=== PATIENT | female | born 1990 | race Caucasian/White ===

== ENCOUNTER → 2018-11-30 10:40 | Observation (INO) ==
[2018-11-30 09:25] LABS: Bilirubin,Urine Negative (Negative); Blood,Urine Large (Negative); Clarity,Urine Cloudy (Clear); Color,Urine Dark Yellow (Yellow); Glucose,Urine (UA) Normal (Normal); Ketones,Urine Negative (Negative); Leukocyte Esterase,Urine Large (Negative); Nitrite,Urine Negative (Negative); Protein,Urine Trace mg/dL (Neg-Trace); Specific Gravity,Urine 1.021 (1.010-1.025); Urobilinogen,Urine Normal (Normal)
[2018-11-30 09:28] LABS: Bacteria,Urine Few per hpf (None-Few); Hyaline Casts,Urine Few per lpf (None-Few); Squamous Epithelial Cell,Urine Many per lpf (None-Few); WBC,Urine 30-50 per hpf (0-3)
--- NOTE | 2018-11-30 10:13 | Event Note ---
Date of Encounter: 11/30/18 Time of Encounter: 10:11 Patient is admitted today after having intercourse having large amount of bleeding and discharge. I was asked to perform ultrasound by mixer pigment. Ultrasound shows infant in transverse presentation. Infant very active. Arms and legs moving. Patient was able to visualize this. Amniotic fluid subjectively is normal. There is a large amount seen all around the . Placenta is posterior with no signs of placental separation. Placenta is very low-lying and at cervix. Most likely source of bleeding due to trauma from recent intercourse causing some mild separation which cannot be seen on ultrasound. Patient understands this. She is to have pelvic rest and do no heavy lifting. She is to follow back up in the office for repeat scan. Patient has been monitored. No contractions have picked up.
[2018-11-30 10:24] LABS: Amphetamine Screen,Urine Negative ng/mL (Cutoff=1000); Barbiturate Screen,Urine Negative ng/mL (Cutoff=200); Benzodiazepines Screen,Urine Negative ng/mL (Cutoff=200); Cannabinoid Screen,Urine Positive ng/mL (Cutoff = 50); Cocaine Screen,Urine Negative ng/mL (Cutoff= 300); Opiate Screen,Urine Negative ng/mL (Cutoff=300); Phencyclidine Screen,Urine Negative ng/mL (Cutoff=25)
--- NOTE | 2018-11-30 10:33 | OB/GYN Progress Note ---
Date of Encounter: 11/30/18 Time of Encounter: 10:30 - Assessment and Plan (1) 21 weeks gestation of Current Visit: Yes Status: Acute Per Ultrasound with Dr Gastelum - normal amount of fluid with low-lying placenta Metronidazole for BV Bleeding has slowed Discharge home on pelvic rest and with PTL/Bleeding precautions Follow up in office with routine care and PRN POC per consult with Dr Diaz (2) Vaginal bleeding before 22 weeks gestation Current Visit: Yes Status: Acute (3) Bacterial vaginosis in Current Visit: Yes Status: Acute Subjective - Subjective Principal diagnosis: Vaginal bleeding Interval history: Ms Sampson is a at 21 weeks and 6 days that presents to [facility] with c/o vaginal bleeding that began this morning after having a bowel movement. She states that she has had diarrhea multiple times throughout this and has not been around anyone that has been ill with a GI illness. She states positive movement. She has not had any previous episodes of vaginal delivery with this or previous pregnancies. She has a Rh positive blood type. She admits to intercourse last night. She denies cramping/contractions/leaking of fluid. She is seen by Dr Lawson for her care. Antepartum ROS: vaginal bleeding, movement normal, no loss of fluid, no contractions Objective - Vital Signs Vital Signs: Intake and Output 11/29/18 11/30/18 11/30/18 23:59 07:59 15:59 Other: Weight 108.3 kg Patient Weight 11/30/18 23:59 Weight 108.3 kg - Exam FHR: auscultation normal FHR comments: FHTs in 140's NO contractions per report, palpation, or toco Auscultation: bilateral: normal Abdomen: Present: normal appearance, soft, gravid Uterus: Present: normal. Absent: firm, tenderness Comments: SSE - odor (fish like), Mild amount of non-clotted blood from cervix (mild red in color). Cervix appears visually closed. - Labs Labs: Abnormal lab results Urine Clarity Cloudy (Clear) A 11/30/18 09:06 Urine Blood Large (Negative) H 11/30/18 09:06 Ur Leukocyte Esterase Large (Negative) H 11/30/18 09:06 Urine Microscopic RBC 3-5 per hpf (0-3) H 11/30/18 09:06 Urine Microscopic WBC 30-50 per hpf (0-3) H 11/30/18 09:06 Ur Squamous Epith Cells Many per lpf (None-Few) H 11/30/18 09:06 Ur Culture Indicated? YES (NO) A 11/30/18 09:06 U Marijuana (THC) Screen Positive ng/mL (Cutoff = 50) H 11/30/18 09:06
== END | disposition home or self-care (01) ==
LOC: 1NENULAB
PROVIDERS: ADMIT Advanced Practice Midwife; ATTEND Advanced Practice Midwife

== ENCOUNTER 2019-01-08 07:25 | Observation (INO) ==
[2019-01-08 08:38] LABS: Bilirubin,Urine Negative (Negative); Blood,Urine Large (Negative); Color,Urine Yellow (Yellow); Glucose,Urine (UA) Normal (Normal); Ketones,Urine Negative (Negative); Leukocyte Esterase,Urine Negative (Negative); Nitrite,Urine Negative (Negative); PH,Urine 6.5 pH Units (5.0-8.0); Protein,Urine Negative (Neg-Trace); Urobilinogen,Urine Normal (Normal)
[2019-01-08 08:40] LABS: Bacteria,Urine None Seen per hpf (None-Few); Hyaline Casts,Urine None Seen per lpf (None-Few); RBC,Urine 0-3 per hpf (0-3); Squamous Epithelial Cell,Urine Many per lpf (None-Few); WBC,Urine 0-3 per hpf (0-3)
[2019-01-08 08:41] LABS: Clarity,Urine Slightly Hazy (Clear)
[2019-01-08 09:02] LABS: Amphetamine Screen,Urine Negative ng/mL (Cutoff=1000); Barbiturate Screen,Urine Negative ng/mL (Cutoff=200); Benzodiazepines Screen,Urine Negative ng/mL (Cutoff=200); Cannabinoid Screen,Urine Negative ng/mL (Cutoff = 50); Cocaine Screen,Urine Negative ng/mL (Cutoff= 300); Opiate Screen,Urine Negative ng/mL (Cutoff=300); Phencyclidine Screen,Urine Negative ng/mL (Cutoff=25)
[2019-01-08 10:29] LABS: Candida DNA Not Detected (Not Detect); Gardnerella DNA Not Detected (Not Detect); Trichomonas DNA Not Detected (Not Detect)
== END 2019-01-08 13:10 | disposition home or self-care (01) ==
LOC: 1NENULAB
PROVIDERS: ADMIT Registered Nurse; ATTEND Registered Nurse

== ENCOUNTER 2019-01-13 04:45 | Observation (INO) ==
[2019-01-13 05:18] LABS: Bilirubin,Urine Negative (Negative); Blood,Urine Large (Negative); Clarity,Urine Cloudy (Clear); Color,Urine Yellow (Yellow); Glucose,Urine (UA) Normal (Normal); Ketones,Urine Negative (Negative); Leukocyte Esterase,Urine Small (Negative); Nitrite,Urine Negative (Negative); Protein,Urine Negative (Neg-Trace); Specific Gravity,Urine 1.015 (1.010-1.025); Urobilinogen,Urine Normal (Normal)
[2019-01-13 05:21] LABS: Bacteria,Urine Few per hpf (None-Few); Hyaline Casts,Urine None Seen per lpf (None-Few); Squamous Epithelial Cell,Urine Many per lpf (None-Few); WBC,Urine 15-30 per hpf (0-3)
[2019-01-13 05:27] LABS: Amphetamine Screen,Urine Negative ng/mL (Cutoff=1000); Barbiturate Screen,Urine Negative ng/mL (Cutoff=200); Benzodiazepines Screen,Urine Negative ng/mL (Cutoff=200); Cannabinoid Screen,Urine Negative ng/mL (Cutoff = 50); Cocaine Screen,Urine Negative ng/mL (Cutoff= 300); Opiate Screen,Urine Negative ng/mL (Cutoff=300); Phencyclidine Screen,Urine Negative ng/mL (Cutoff=25)
== END 2019-01-13 08:30 | disposition home or self-care (01) ==
LOC: 1NENULAB
PROVIDERS: ADMIT Advanced Practice Midwife; ATTEND Advanced Practice Midwife

== ENCOUNTER → 2019-02-16 08:11 | Observation (INO) ==
[2019-02-15 07:34] LABS: Basophils % 0.3 %; Eosinophils # 0.1 K/mcL (0.0-0.6); Hematocrit 36.6 % (35.3-44.9); Hemoglobin 13.1 g/dL (11.5-15.4); Immature Granulocytes % 1.2 % (0-4); Lymphocytes # 3.4 K/mcL (0.6-4.6); Lymphocytes % 22.9 %; Mean Corpuscular HGB Conc 35.8 g/dL (31.6-35.5); Mean Corpuscular Hemoglobin 31.6 pg (28.0-33.3); Mean Corpuscular Volume 88.2 fL (83.0-100.0); Mean Platelet Volume 11.5 fL (9.4-12.4); Monocytes # 1.5 K/mcL (0.0-1.3); Monocytes % 10.4 %; Neutrophils # 9.4 K/mcL (1.6-8.9); Platelet Count 260 K/mcL (140-400); Red Blood Count 4.15 M/mcL (3.82-4.97); Red Cell Distribution Width 13.5 % (11.5-14.5); Segmented Neutrophils % 64.2 %; White Blood Count 14.6 K/mcL (4.3-11.1)
[2019-02-15] MEDS: Betamethasone Acet/SodPhos 30 MG/5 ML VIAL IM SCH (07:37)
[2019-02-15 08:08] LABS: INR 0.9
[2019-02-15 08:10] LABS: Activated Partial Thrombo Time 28.6 Seconds (26.0-36.0)
[2019-02-16] MEDS: Betamethasone Acet/SodPhos 30 MG/5 ML VIAL IM SCH (07:21)
[~2019-02-16 08:11] MED LIST: Acetaminophen 325 MG TABLET PO ONE; Ringers Solution, Lactated 1,000 ML IVC SCH; Ringers Solution, Lactated 1,000 ML ONE
== END | disposition home or self-care (01) ==
LOC: 1NENULAB
PROVIDERS: ADMIT Registered Nurse; ATTEND Registered Nurse

== ENCOUNTER → 2019-02-19 09:53 | Observation (INO) ==
[2019-02-19 09:28] LABS: Bilirubin,Urine Negative (Negative); Blood,Urine Moderate (Negative); Color,Urine Yellow (Yellow); Glucose,Urine (UA) Normal (Normal); Ketones,Urine Negative (Negative); Leukocyte Esterase,Urine Small (Negative); Nitrite,Urine Negative (Negative); PH,Urine 6.5 pH Units (5.0-8.0); Protein,Urine Negative (Neg-Trace); Specific Gravity,Urine 1.011 (1.010-1.025); Urobilinogen,Urine Normal (Normal)
[2019-02-19 09:31] LABS: Bacteria,Urine Few per hpf (None-Few); Hyaline Casts,Urine None Seen per lpf (None-Few); Squamous Epithelial Cell,Urine Many per lpf (None-Few); WBC,Urine 15-30 per hpf (0-3)
[2019-02-19 09:39] LABS: Clarity,Urine Slightly Cloudy (Clear)
[2019-02-19 09:46] LABS: Amphetamine Screen,Urine Negative ng/mL (Cutoff=1000); Barbiturate Screen,Urine Negative ng/mL (Cutoff=200); Benzodiazepines Screen,Urine Negative ng/mL (Cutoff=200); Cannabinoid Screen,Urine Negative ng/mL (Cutoff = 50); Cocaine Screen,Urine Negative ng/mL (Cutoff= 300); Opiate Screen,Urine Negative ng/mL (Cutoff=300); Phencyclidine Screen,Urine Negative ng/mL (Cutoff=25)
== END | disposition home or self-care (01) ==
LOC: 1NENULAB
PROVIDERS: ADMIT Advanced Practice Midwife; ATTEND Advanced Practice Midwife

== ENCOUNTER 2019-03-31 05:17 | Inpatient (IN) ==
[2019-03-31] MEDS ORDERED: Metoclopramide 10 MG/2 ML VIAL IVP PRN ×2 (05:28→11:50)
[2019-03-31] MEDS ORDERED: Famotidine 20 MG/2 ML VIAL IVP PRN (05:28)
[2019-03-31] MEDS ORDERED: Naloxone 0.4 MG/ML INJ IVP PRN (05:28)
[2019-03-31] MEDS ORDERED: Ringers Solution, Lactated 1,000 ML IVC SCH (05:30)
[2019-03-31 06:00] LABS: Basophils % 0.2 %; Eosinophils # 0.2 K/mcL (0.0-0.6); Eosinophils % 1.1 %; Hematocrit 38.1 % (35.3-44.9); Hemoglobin 13.6 g/dL (11.5-15.4); Immature Granulocytes % 0.7 % (0-4); Lymphocytes # 3.2 K/mcL (0.6-4.6); Mean Corpuscular HGB Conc 35.7 g/dL (31.6-35.5); Mean Corpuscular Volume 86.8 fL (83.0-100.0); Mean Platelet Volume 10.7 fL (9.4-12.4); Monocytes # 1.4 K/mcL (0.0-1.3); Monocytes % 10.6 %; Neutrophils # 8.3 K/mcL (1.6-8.9); Platelet Count 310 K/mcL (140-400); Red Blood Count 4.39 M/mcL (3.82-4.97); Red Cell Distribution Width 13.3 % (11.5-14.5); Segmented Neutrophils % 63.4 %; White Blood Count 13.2 K/mcL (4.3-11.1)
[2019-03-31] MEDS ORDERED: Metoclopramide 10 MG/2 ML VIAL ONE (07:15)
[2019-03-31] MEDS ORDERED: EPHEDrine 50 MG/ML VIAL ONE (07:22)
[2019-03-31] MEDS ORDERED: *HR* FentaNYL (PF) 100 MCG/2 ML VIAL ONE (07:22)
[2019-03-31] MEDS ORDERED: *HR* Morphine Sulfate/PF 10 MG/10 ML AMPUL ONE (07:22)
[2019-03-31] MEDS ORDERED: *HR* Phenylephrine 10 MG/ML VIAL ONE (07:23)
[2019-03-31] MEDS ORDERED: Ondansetron 4 MG/2 ML VIAL ONE (07:23)
[2019-03-31] MEDS ORDERED: *HR* Oxytocin 10 UNIT/ML VIAL IM ONE (07:23)
[2019-03-31] MEDS ORDERED: CeFAZolin Syr 3,000MG/30 ML 3,000 MG/30 ML SYRINGE IVPB ONE (07:29)
[2019-03-31] MEDS ORDERED: *HR* OxyCODONE Immed Rel 5 MG TABLET PO PRN (07:52)
[2019-03-31] MEDS ORDERED: Acetaminophen IV 1,000 MG/100 ML INFUS..BTL IVPB ONE (07:52)
[2019-03-31] MEDS ORDERED: Ondansetron 4 MG/2 ML VIAL IVP ONE (07:52)
[2019-03-31] MEDS ORDERED: *HR* HYDROmorphone (PF) 1 MG/ML SYRINGE IVP PRN (07:52)
[2019-03-31 07:54] LABS: Amphetamine Screen,Urine Negative ng/mL (Cutoff=1000); Barbiturate Screen,Urine Negative ng/mL (Cutoff=200)
[2019-03-31 07:55] LABS: Benzodiazepines Screen,Urine Negative ng/mL (Cutoff=300); Cannabinoid Screen,Urine Negative ng/mL (Cutoff = 50); Cocaine Screen,Urine Negative ng/mL (Cutoff= 300); Opiate Screen,Urine Negative ng/mL (Cutoff=300); Phencyclidine Screen,Urine Negative ng/mL (Cutoff=25)
[2019-03-31] MEDS ORDERED: Ringers Solution, Lactated 1,000 ML ONE (07:59)
[2019-03-31] MEDS ORDERED: Oxytocin 20 units/ LR 1000 mL 20 UNIT/1,000 ML BAG IVC ONE (10:07)
[2019-03-31] MEDS ORDERED: Sennosides 8.6 MG TABLET PO PRN (11:50)
[2019-03-31] MEDS ORDERED: Ondansetron 4 MG/2 ML VIAL IVP PRN (11:50)
[2019-03-31] MEDS ORDERED: Oxytocin 20 units/ LR 1000 mL 20 UNIT/1,000 ML BAG IVC SCH (11:50)
[2019-03-31] MEDS ORDERED: Simethicone 80 MG TAB.CHEW PO PRN (11:50)
[2019-03-31] MEDS ORDERED: Menthol 9.1 MG LOZENGE PO PRN (11:59)
[2019-03-31] MEDS: ceFAZolin 2,000 MG in Water for inj. (sterile) 10 ML IVP SCH ×2 (14:22→21:42)
[2019-03-31] MEDS: *HR* OxyCODONE/APAP 5/325 TABLET PO PRN (18:11)
[2019-03-31] MEDS: Ibuprofen 600 MG TABLET PO PRN (21:42)
[2019-03-31] MEDS: metroNIDAZOLE 500 MG TABLET PO SCH (21:42)
[2019-04-01] MEDS: *HR* OxyCODONE/APAP 5/325 TABLET PO PRN ×2 (02:21→18:17)
[2019-04-01] MEDS: ceFAZolin 2,000 MG in Water for inj. (sterile) 10 ML IVP SCH (05:01)
[2019-04-01] MEDS: Ibuprofen 600 MG TABLET PO PRN ×3 (05:28→22:01)
[2019-04-01 06:00] LABS: Basophils % 0.2 %; Eosinophils # 0.2 K/mcL (0.0-0.6); Eosinophils % 1.4 %; Hematocrit 34.5 % (35.3-44.9); Immature Granulocytes % 0.6 % (0-4); Lymphocytes # 2.4 K/mcL (0.6-4.6); Mean Corpuscular HGB Conc 33.9 g/dL (31.6-35.5); Mean Corpuscular Hemoglobin 30.3 pg (28.0-33.3); Mean Corpuscular Volume 89.4 fL (83.0-100.0); Mean Platelet Volume 10.7 fL (9.4-12.4); Monocytes # 1.5 K/mcL (0.0-1.3); Monocytes % 11.5 %; Neutrophils # 8.6 K/mcL (1.6-8.9); Platelet Count 249 K/mcL (140-400); Red Blood Count 3.86 M/mcL (3.82-4.97); Red Cell Distribution Width 13.5 % (11.5-14.5); Segmented Neutrophils % 67.3 %; White Blood Count 12.7 K/mcL (4.3-11.1)
[2019-04-01 06:04] LABS: Hemoglobin 11.7 g/dL (11.5-15.4)
[2019-04-01] MEDS: Prenatal Vit/FA 1 EACH TABLET PO SCH (08:27)
[2019-04-01] MEDS: metroNIDAZOLE 500 MG TABLET PO SCH ×2 (08:27→22:01)
[2019-04-01 22:39] VITALS: BP 120/83
[2019-04-02] MEDS: Ibuprofen 600 MG TABLET PO PRN (04:00)
[2019-04-02] MEDS: *HR* OxyCODONE/APAP 5/325 TABLET PO PRN (07:27)
[2019-04-02] MEDS: Prenatal Vit/FA 1 EACH TABLET PO SCH (07:27)
== END 2019-04-02 11:59 | disposition home or self-care (01) | DRG 539 ==
LOC: 1NENULAB 05:17 → 1NENUOBS 10:47
PROVIDERS: ADMIT Obstetrics & Gynecology; ATTEND Obstetrics & Gynecology